=== PATIENT | female | born 1995 | race Caucasian/White ===

== ENCOUNTER 2024-04-16 10:07 | Emergency (ER) | payer OTHER, SELFPAY ==
--- NOTE | ~2024-04-16 | CT_ITS ---
CT brain wo con Ordering provider: Stephon Salazar APRN History: 29 years Female with . headache, Family Hx AVM . Comparison: None. Technique: CT of the head without contrast. Radiation reduction technique utilized. The dose-length product was 605.33 mGy-cm. FINDINGS: BRAIN PARENCHYMA AND CSF SPACES: No midline shift, mass effect or hemorrhage. The brain parenchyma a nd CSF spaces are otherwise normal. VISUALIZED PARANASAL SINUSES: Well aerated. MASTOIDS: Well aerated. BONES: The bones appear intact. SOFT TISSUES: Visualized nasopharynx is normal. Superficial soft tissues are normal. IMPRESSION: No acute intracranial findings. Reviewed, dictated and finalized at location A.
--- NOTE | 2024-04-16 10:12 | ED.HA ---
HPI - Headache General Chief Complaint: Headache Stated Complaint: ELEVATED BP AND HEADACHE, CHRONIC CHEST PAIN Time Seen by Provider: 04/16/24 10:12 Source: patient and family Mode of arrival: ambulatory Limitations: no limitations History of Present Illness HPI Narrative: This is a 29-year-old female patient presents to the emergency department with numerous complaints including left posterior headache she describes as a pressure that radiates to the left side of the neck, chest pains ongoing for 1 year, chronic back pain ongoing for over a year and urinary urgency. Patient denies fever chills. She states she has been getting nauseous with this headache. The headache has been ongoing for the last couple of days and worsening without improvement so she came to the emergency department for evaluation primarily of this complaint but also wanted to mention her other chronic concerns as well. Related Data Home Medications Medication Instructions Recorded Confirmed cholecalciferol (vitamin D3) 50 50 mcg PO DAILY 08/19/22 05/06/23 mcg (2,000 unit) capsule Allergies Allergy/AdvReac Type Severity Reaction Status Date / Time No Known Allergies Allergy Unverified 05/06/23 08:46 Review of Systems Review of Systems: All systems reviewed & are unremarkable except as noted in HPI and below PMFSH Past Medical History Medical History Allergies Anxiety Asthma Fatigue IBS (irritable bowel syndrome) Persistent headaches Surgical History Surgical History No history of previous surgery Family History Family History Father Alcoholism Hypertension Mother Cancer Cerebrovascular accident Hypertension Grandparent Alcoholism Cancer Diabetes mellitus Grandparent Alcoholism Asthma Cancer Diabetes mellitus Depression Heart disease Cerebrovascular accident Social History Social History Smoking packs per day: 0.5 Smoking cigarettes per day: 10.0 Smoking status: Unknown if ever smoked Tobacco type: cigarettes and e-cigarettes/vaping Alcohol intake: current Alcohol use details: rum Substance use: current Living arrangements: with family Occupation/Education: occupation 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 HEAD: Normocephalic, atraumatic. ENT:? Mucous membranes moist. PERRL, no signs of papilledema CHEST: Clear to auscultation.? No respiratory distress. HEART: Regular rate and rhythm. ? Normal peripheral pulses. ABDOMEN: Soft, obese, nontender, nondistended. EXTREMITIES: Normal range of motion. No peripheral edema. SKIN: Warm dry normal color NEURO: Alert and oriented x3. PSYCH: Anxious mood and affect Course Reevaluation(s) Reevaluation #1: Headache mildly improved. Chest pain (1 year in duration) still present. Patient very concerned due to family history of AVM in mother and wants imaging. Ordered Tylenol and CT Brain. Date: 04/16/24 Time: 11:59 Vital Signs Vital signs: Vital Signs Temperature 36.5 C 04/16/24 10:15 Pulse Rate 92 04/16/24 10:15 Respiratory Rate 20 04/16/24 10:15 Blood Pressure 193/92 H 04/16/24 10:15 Pulse Oximetry 98 04/16/24 10:15 Oxygen Delivery Room Air 04/16/24 10:15 Temperature 36.5 C 04/16/24 10:15 Pulse Rate 75 04/16/24 11:04 Respiratory Rate 18 04/16/24 11:04 Blood Pressure 146/95 H 04/16/24 11:04 Pulse Oximetry 99 04/16/24 11:04 Oxygen Delivery Room Air 04/16/24 10:15 MDM - Headache MDM Narrative Medical decision making narrative: patient presents
[2024-04-16 10:15] VITALS: BP 193/92; PULSE 92; RESP 20; TEMP 36.5; O2SAT 98
[2024-04-16 10:48] LABS: BEDSIDEPREGUCG Negative (Negative)
[2024-04-16 10:56] LABS: Add Urine Microscopic? YES; Appearance Urine Clear (Clear); Bacteria Urine Rare /hpf; Bilirubin Urine Negative (Negative); Blood Urine Trace (Negative); Color Urine Yellow (Yellow); Glucose Urine UA Negative (Negative); Ketones Urine Trace mg/dL (Negative); Leukocyte Esterase Ur 2+ LEU/UL (Negative); Nitrate Urine Negative (Negative); Non Pathogenic Casts 0-2; Protein Urine Negative (Negative); Specific Grav Ur 1.023 (1.001-1.035); Squamous Epithelial Cell Urine Few /hpf (Few); Urobilinogen Urine 0.2 mg/dL (<2.0); WBC Urine 21-50 /hpf (0-3); pH Urine 5.5 (5.0-9.0)
[2024-04-16] MEDS: KETOROLAC 15 MG/ML VIAL (*BKC) IV PUSH (10:58)
[2024-04-16] MEDS: diphenhydrAMINE HCl INJ 50 MG/ML VIAL 25 MG IV PUSH (10:59)
[2024-04-16] MEDS: PROCHLORPERAZINE EDISYLATE 10 MG/2 ML VIAL IV PUSH (10:59)
[2024-04-16] MEDS: SODIUM CHLORIDE 0.9% IV 1,000 ML 999 ML IV CONT (10:59)
[2024-04-16 11:04] VITALS: BP 146/95; PULSE 75; RESP 18; O2SAT 99
[2024-04-16 11:07] LABS: Basophils Percent Auto 0.5 % (0.2-1.2); Eosinophils Absolute Auto 0.1 K/mm3 (0-0.3); Eosinophils Percent Auto 0.8 % (0-4.4); Hematocrit 43.6 % (37.0-47.0); Hemoglobin 14.1 g/dL (12.0-15.0); Immature Granulocyte Absolute 0.03 K/mm3 (0.00-0.031); Immature Granulocyte Percent A 0.3 % (0-0.5); Lymphocytes Absolute Auto 2.15 K/mm3 (0.9-3.2); Lymphocytes Percent Auto 24.4 % (18.3-44.2); Mean Corpuscular HGB Conc 32.3 g/dl (32-36); Mean Corpuscular Hemoglobin 29.9 pg (26-34); Mean Corpuscular Volume 92.4 fl (80-100); Mean Platelet Volume 9.6 fl (7.4-10.4); Monocytes Absolute Auto 0.5 K/mm3 (0.1-0.6); Monocytes Percent Auto 5.1 % (2.6-8.5); Neutrophils Absolute Auto 6.1 K/mm3 (1.3-6.7); Neutrophils Percent Auto 68.9 % (45.5-73.1); Platelet Count Result 208 k/mm3 (150-375); Red Blood Count 4.72 M/mm3 (4.2-5.4); Red Cell Distribution Width 13.5 % (11.5-14.5); White Blood Count 8.8 K/mm3 (4.5-10.0)
[2024-04-16 11:26] LABS: Alanine Aminotransferase 16 U/L (6-35); Albumin Level 4.1 g/dL (3.5-5.1); Alkaline Phosphatase 111 U/L (38-126); Anion Gap 8 mmol/L (4-12); Aspartate Amino Transferase 19 U/L (14-36); Bilirubin,Total 0.5 mg/dL (0.2-1.3); Blood Urea Nitrogen 15 mg/dL (7-17); Calcium 8.8 mg/dL (8.4-10.2); Carbon Dioxide 27 mmol/L (22-30); Chloride 105 mmol/L (98-107); Estimated CRCL calculation 133 ml/min; Estimated Glomerular Filt Rate > 60; Glucose 96 mg/dL (65-110); Magnesium 1.9 mg/dL (1.6-2.3); Potassium 4.1 mmol/L (3.4-5.0); Sodium 140 mmol/L (137-145)
[2024-04-16] MEDS: ACETAMINOPHEN 500 MG TABLET 1000 MG PO (12:47)
[2024-04-16 12:50] VITALS: BP 139/72; PULSE 75; RESP 16; O2SAT 100
== END 2024-04-16 12:55 | disposition home or self-care (01) ==
PROVIDERS: Emergency Provider Nurse Practitioner; PCP Nurse Practitioner Family
DX: R51.9 Headache, unspecified (principal); J45.909 Unspecified asthma, uncomplicated; K58.9 Irritable bowel syndrome, unspecified; F41.9 Anxiety disorder, unspecified; F17.210 Nicotine dependence, cigarettes, uncomplicated; F17.290 Nicotine dependence, other tobacco product, uncomplicated; Z79.899 Other long term (current) drug therapy
CPT/HCPCS: 36415; 70450; 80053; 81001; 81025; 83735; 85025; 87086; 96361; 96374; 96375; 99284; A9270; J0780; J1200; J1885; J7030